=== PATIENT | female | born 1970 | race Caucasian/White ===

== ENCOUNTER 2020-12-11 10:15 | Outpatient (CLI) | payer BC, SELFPAY ==
--- NOTE | ~2020-12-11 | MM_ITS ---
EXAMINATION: MM screening gordy BI w linda HISTORY: Screening TECHNIQUE: Craniocaudal and mediolateral oblique 3-D tomosynthesis images were obtained and synthetic 2-D images were generated. CAD analysis was submitted and interpreted. COMPARISON: No prior mammogram is available for comparison at this institution. BREAST PARENCHYMAL COMPOSITION: The breasts are heterogeneously dense, which may obscure small masses . FINDINGS: There is no evidence of suspicious mass, calcification, or architectural distortion to sugg est malignancy in either breast. There has been no suspicious interval change. IMPRESSION: 1. No mammographic evidence of malignancy. 2. Recommend routine screening mammography in one year. BI-RADS Category 1: Negative Reviewed, dictated and finalized at location A. ER ASSOCIATE
== END 2020-12-11 10:16 | disposition home or self-care (01) ==
LOC: ANHIMG 10:16
PROVIDERS: PCP Internal Medicine; Visit Provider Nurse Practitioner
DX: Z12.31 Encounter for screening mammogram for malignant neoplasm of breast (principal)
CPT/HCPCS: 77063; 77067

== ENCOUNTER 2021-05-04 09:10 | Outpatient (CLI) | payer BC, SELFPAY ==
--- NOTE | ~2021-05-04 | XR_ITS ---
EXAMINATION: XR lumbar spine min 4V DATE: 05/04/2021 10:04 INDICATION: Unspecified osteoarthritis, concern for rheumatoid arthritis TECHNIQUE: Anteroposterior, lateral, and bilateral oblique views of the lumbar spine, and cone-down l ateral view of the lumbosacral junction were obtained. COMPARISON: None. FINDINGS: There is no fracture, dislocation, or subluxation. The vertebral body heights are maintaine d. There is mild loss of intervertebral disc space height at L5-S1. Small degenerative osteophytes pr oject from the anterior endplates of multiple vertebral bodies. There is mild facet osteoarthritis of the lower lumbar spine. An IUD is noted. IMPRESSION: 1. Mild lumbar spondylosis. Reviewed, dictated and finalized at location A. IMPRESSION: 1. Mild lumbar spondylosis.
--- NOTE | ~2021-05-04 | XR_ITS ---
EXAMINATION: XR foot LT standing 2V EXAM DATE: 05/04/2021 10:04 INDICATION: M25.9 - Joint disorder, checking for rheumatoid. TECHNIQUE: Frontal and lateral projections of the left foot standing. There is no prior study for c omparison. FINDINGS: There is mild left 1st MTP bunion and primary osteoarthritis. There are no bony erosions id entified. There are no acute fractures or dislocations identified. There is no subcutaneous gas. Th e soft tissue is unremarkable. There are no radiopaque foreign bodies. Tiny calcaneal spur posteri alexis. IMPRESSION: Mild left 1st MTP osteoarthritis. Reviewed, dictated and finalized at location G.
--- NOTE | ~2021-05-04 | XR_ITS ---
EXAMINATION: XR foot RT standing 2V EXAM DATE: 05/04/2021 10:04 INDICATION: M25.9 - Joint disorder, checking for rheumatoid. TECHNIQUE: Frontal and lateral projections of the right foot standing. There is no prior study for comparison. FINDINGS: There are no bony erosions identified. There is mild 1st MTP bunion and primary osteoarthr itis. There are no acute fractures or dislocations identified. There is no subcutaneous gas. The so ft tissue is unremarkable. There are no radiopaque foreign bodies. IMPRESSION: Mild right 1st MTP osteoarthritis. Reviewed, dictated and finalized at location G.
--- NOTE | ~2021-05-04 | XR_ITS ---
EXAMINATION: XR hand BI arthritis min 3V EXAM DATE: 05/04/2021 10:04 INDICATION: M25.9 - Joint disorder, checking for rheumatoid. TECHNIQUE: Right hand frontal, lateral and oblique projections obtained and reviewed. Left hand fron lakisha, lateral and oblique projections obtained and reviewed. Catchers projection of both hands. There is no prior study for comparison. FINDINGS: Right hand: There are no bony erosions identified. There is mild to moderate right 1st carpometacarpa l primary osteoarthritis, and mild at the 1st interphalangeal joint. There are no acute fractures id entified. The soft tissue is unremarkable. Left hand: There are no bony erosions identified. There is mild left 1st carpometacarpal primary oste oarthritis. There are no acute fractures identified. The soft tissue is unremarkable. IMPRESSION: Polyarticular osteophytes. No erosions. Reviewed, dictated and finalized at location G.
--- NOTE | ~2021-05-04 | XR_ITS ---
EXAMINATION: XR sacroiliac joints min 3V INDICATION: Joint disorder, possible rheumatoid arthritis TECHNIQUE: Three views of the sacroiliac joints are obtained. COMPARISON: None available FINDINGS: There is no fracture. No abnormal erosion or sclerosis of the sacroiliac joints is seen. IU D is noted. There are phleboliths of the pelvis. IMPRESSION: 1. Unremarkable sacroiliac joints. Reviewed, dictated and finalized at location A.
== END 2021-05-04 09:11 | disposition home or self-care (01) ==
PROVIDERS: PCP Internal Medicine; Visit Provider Internal Medicine
DX: M18.0 Bilateral primary osteoarthritis of first carpometacarpal joints (principal); M19.072 Primary osteoarthritis, left ankle and foot; M19.071 Primary osteoarthritis, right ankle and foot; M47.816 Spondylosis without myelopathy or radiculopathy, lumbar region
CPT/HCPCS: 72110; 72202; 73130; 73620

== ENCOUNTER 2022-11-16 10:03 | Outpatient (CLI) | payer BC, SELFPAY ==
[2022-11-16 11:01] LABS: Estimated Glomerular Filt Rate > 60; Magnesium 1.9 mg/dL (1.6-2.3)
[2022-11-16 11:41] LABS: Hemoglobin A1C 4.8 % (<5.7)
[2022-11-16 12:16] LABS: Vitamin D 25 Hydroxy 21.1 ng/mL
[2022-11-16 15:14] LABS: Iron 74 ug/dL (37-170)
[2022-11-16 15:21] LABS: Percent Iron Saturation 30 % (20-50)
[2022-11-20 11:09] LABS: Alpha-Tocopherol 9.1 mg/L (5.7-19.9); Beta-Gamma Tocopherol 1.6 mg/L (<=4.3)
== END 2022-11-16 10:04 | disposition home or self-care (01) ==
LOC: ANHLAB 10:05
PROVIDERS: Visit Provider Nurse Practitioner
DX: G47.61 Periodic limb movement disorder (principal)
CPT/HCPCS: 36415; 82306; 82565; 82607; 82747; 83036; 83540; 83550; 83735; 84446

== ENCOUNTER 2023-12-27 19:01 | Emergency (ER) | payer BC, SELFPAY ==
--- NOTE | ~2023-12-27 | XR_ITS ---
EXAMINATION: XR knee LT 3V DATE: 12/27/2023 20:50 INDICATION: Left knee pain TECHNIQUE: Three views of the left knee were obtained. COMPARISON: None. FINDINGS: Alignment is normal. No acute fracture or osteochondral lesion. There appears to be an old healed fracture of the proximal fibula. There is mild tricompartmental osteoarthritis characterized b y tiny marginal osteophytes. No joint effusion/synovitis. Soft tissues are unremarkable. IMPRESSION: 1. No acute osseous abnormality. Reviewed, dictated and finalized at location F.
[2023-12-27 19:32] VITALS: BP 126/52; PULSE 87; RESP 16; TEMP 37.1; O2SAT 98
--- NOTE | 2023-12-27 21:33 | ED.EXTPRO ---
HPI - Extremity Problem General Chief complaint: Extremity Problem,Nontraumatic Stated complaint: L knee pain, no injury Time Seen by Provider: 12/27/23 20:34 History of Present Illness HPI Narrative: 53-year-old female presenting to the emergency department for evaluation for left knee pain patient reports she has fibromyalgia and the way it presents in her is knee pain. Patient reports she has had increased knee pain over the last few weeks. Patient reports please pain with ambulation. Patient has follow-up previously with urgent care and has had previous imaging. Related Data Allergies Allergy/AdvReac Type Severity Reaction Status Date / Time codeine Allergy Mild anaphlaxine Verified 12/27/23 20:35 diphenhydramine Allergy Mild flat line Verified 12/27/23 20:35 [From Benadryl Allergy] Penicillins Allergy Mild Rash Verified 12/27/23 20:35 Review of Systems Review of Systems: All systems reviewed & are unremarkable except as noted in HPI and below PMFSH Past Medical History Medical History Body mass index 38.0-38.9, adult Fibromyalgia History of rectocele Surgical History Surgical History History of dilation and curettage Hx laparoscopic cholecystectomy Family History Family History Father Alcohol abuse by father Cancer Diabetes mellitus High blood pressure associated with diabetes Depression Anxiety Heart disease HAD CABG X3 Cerebrovascular accident CHF (congestive heart failure) Mother Initial high blood pressure determined by examination Depression Sibling Depression Daughter Asthma Depression Grandparent Cancer Heart disease Grandparent Diabetes mellitus High blood pressure associated with diabetes Social History Social History Smoking status: Never smoker Second hand tobacco smoke exposure: Yes Alcohol intake: current Drinks per week: 1 Alcohol use details: occasional use Substance use: current Substance use type: other Other substance usage details: cbd only Living arrangements: with family Occupation/Education: unemployed Exam Narrative: APPEARANCE: Well appearing, no pain, no distress, well-nourished. HEAD: normocephalic, atraumatic. EYES: PERRLA/EOMI, conjunctivae clear. NECK: Supple. No adenopathy, no masses. RESPIRATORY: Airway patent, respirations nonlabored. Clear to auscultation bilaterally, no rales, rhonchi, wheezing. CARDIOVASCULAR: Regular rate and rhythm without murmurs rubs or gallops. ABDOMINAL: Soft, nontender, nondistended, normal bowel sounds MUSCULOSKELETAL: No knee deformity, ecchymosis, effusion and only minimal tenderness to palpation to medial knee NEURO: Alert. Cranial nerves II through XII intact. Good gait. Good coordination SKIN: Warm, dry. Normal Color Course Course Emergency Course: Patient was provided knee immobilizer and crutches for close follow-up with Orthopedics. Vital Signs Vital signs: Vital Signs Temperature 98.8 F 12/27/23 19:32 Pulse Rate 87 12/27/23 19:32 Respiratory Rate 16 12/27/23 19:32 Blood Pressure 126/52 L 12/27/23 19:32 Pulse Oximetry 98 12/27/23 19:32 Oxygen Delivery Room Air 12/27/23 19:32 Temperature 98.8 F 12/27/23 19:32 Pulse Rate 87 12/27/23 19:32 Respiratory Rate 16 12/27/23 19:32 Blood Pressure 126/52 L 12/27/23 19:32 Pulse Oximetry 98 12/27/23 19:32 Oxygen Delivery Room Air 12/27/23 19:32 MDM - Extremity (Nontraumatic) MDM Narrative Medical decision making narrative: 53-year-old female presented to the emergency department for evaluation of left knee pain. X-rays were negative for acute fracture dislocation. Patient was provided knee immobilizer and crutches for limited
== END 2023-12-27 21:58 | disposition home or self-care (01) ==
LOC: ANHED 21:40
PROVIDERS: Emergency Provider Emergency Medicine
DX: M25.562 Pain in left knee (principal); M79.7 Fibromyalgia; Z90.49 Acquired absence of other specified parts of digestive tract
CPT/HCPCS: 73562; 99283